=== PATIENT | male | born 1960 | race Caucasian/White ===

== ENCOUNTER 2017-03-07 05:51 | Inpatient (IN) | payer BC ==
--- NOTE | 2017-02-25 22:53 | HP ---
HISTORY AND PHYSICAL: DATE OF ADMISSION/SURGERY: 03/07/17 DATE OF OFFICE VISIT: 02/25/17 SURGEON: Ana Martini MD * (DICTATED BY LEOLA FARMER) PROCEDURE: Left total knee arthroplasty. CHIEF COMPLAINT: Left knee pain. HISTORY OF PRESENT ILLNESS: Mr. Crawford is a 56-year-old gentleman with continued complaints of left knee pain despite conservative management. He has elected to proceed with a left total knee arthroplasty, which is scheduled for 03/07/[address] Martini. PAST MEDICAL HISTORY: High cholesterol, diverticulitis, bicuspid aortic valve, and acid reflux. PAST SURGICAL HISTORY: Tonsillectomy and adenoidectomy and a rectal surgery when he was 2 days old. CURRENT MEDICATIONS: 1. Cetirizine 10 mg daily. 2. Loratadine 10 mg daily as needed. 3. Aspirin 81 mg daily. 4. Naproxen as needed. 5. Fluticasone nasal spray as needed. 6. Ibuprofen as needed. ALLERGIES: None. FAMILY HISTORY: Diabetes, hypertension, and cancer. SOCIAL HISTORY: This 56-year-old gentleman lives with his . He is retired. He does not smoke or use drugs, uses occasional alcohol. REVIEW OF SYSTEMS: A complete 14-point review of systems was reviewed with the patient, was all negative and noncontributory. PHYSICAL EXAMINATION GENERAL: He is well-developed, well-nourished, in no acute distress. VITAL SIGNS: He stands 6 feet 4 inches tall, weighs 268 pounds. His blood pressure is 139/90, his heart rate is 80. HEENT: Normocephalic, atraumatic. NECK: Supple. No palpable lymph nodes. PULMONARY: The lungs are clear to auscultation bilaterally. CARDIO: Regular rate and rhythm. Strong S1 and S2. ABDOMEN: Soft, nontender, nondistended. MUSCULOSKELETAL: Left lower extremity, the skin is intact. There are no open wounds or abrasions. There is a moderate joint effusion. Tenderness over the medial and lateral joint line. No varus or valgus instability. degrees of flexion, 2+ dorsalis pedis pulses. His lower extremity muscle group strengths are intact at 5/5 and he has intact sensation. NEUROLOGIC: Alert and oriented x3. Cranial nerves II through XII are intact. ASSESSMENT AND PLAN: Mr. Crawford is a 56-year-old gentleman with complaints of left knee pain secondary to end-stage osteoarthritis. He has failed conservative management and elected to proceed with a left total knee arthroplasty, which is scheduled for 03/07/[address] Martini discussed the risks and benefits of surgery at today's visit and all of his questions were answered. Coumadin, Colace, and Percocet were sent to his pharmacy for postoperative pain control and DVT prophylaxis. He will follow with Dr. Martini 2 weeks after the surgery. LEOLA FARMER [id number]/[facility] #: [id number] MTDTristan
[~2017-03-07 05:51] MED LIST: Buffered Lidocaine 0.9% SYRIN* 5 ML/SYR SYRINGE INTRADERM ONE
[2017-03-07] MEDS ORDERED: Famotidine IV* 10 MG/ML 2 ML (20 mg) IV ONE (06:00)
[2017-03-07] MEDS ORDERED: Acetaminophen TAB* 325 MG PO ONE (06:00)
[2017-03-07] MEDS ORDERED: Sodium Citrate/Citric Acid* 15 ML UDC PO ONE (06:00)
[2017-03-07] MEDS ORDERED: Famotidine IV* 10 MG/ML 2 ML (20 mg) ONE (06:01)
[2017-03-07] MEDS ORDERED: Acetaminophen TAB* 325 MG ONE (06:02)
[2017-03-07] MEDS ORDERED: ceFAZolin 2 GM PREMIX (*) 2 GM/50 ML BAG IVPB ONE (06:02)
[2017-03-07] MEDS ORDERED: Buffered Lidocaine 0.9% SYRIN* 5 ML/SYR SYRINGE ONE (06:02)
[2017-03-07] MEDS ORDERED: Sodium Citrate/Citric Acid* 15 ML UDC ONE (06:02)
[2017-03-07] MEDS ORDERED: Lidocaine 2% PF * 5 ML VIAL ONE (06:59)
[2017-03-07] MEDS ORDERED: Propofol* 500 MG/50 ML BTL ONE (06:59)
[2017-03-07] MEDS ORDERED: Midazolam* 1 MG/ML 2 ML VIAL (2 MG) ONE (07:02)
[2017-03-07] MEDS ORDERED: fentaNYL* 50 MCG/ML 2 ML VIAL (100 MCG VIAL) ONE ×3 (07:02→10:20)
[2017-03-07] MEDS ORDERED: Bupivacaine 0.5% SDV PF* 30 ML VIAL ONE ×2 (07:02→08:29)
[2017-03-07] MEDS ORDERED: Rocuronium* 10 MG/ML VIAL ONE (07:36)
[2017-03-07] MEDS ORDERED: Ondansetron INJ* 2 MG/ML VIAL IV PRN ×2 (07:51→10:17)
[2017-03-07] MEDS ORDERED: PROCHLORPERAZINE INJ 5 MG/ML 2 ML VIAL IV PRN (07:51)
[2017-03-07] MEDS ORDERED: Scopolamine 1.5 mg* PATCH TRANSDERM PRN (07:51)
[2017-03-07] MEDS ORDERED: Ibuprofen TAB* 600 MG PO PRN (07:51)
[2017-03-07] MEDS ORDERED: HYDROcodone/ACETAMIN 5-325 MG* 1 TAB PO PRN (07:51)
[2017-03-07] MEDS ORDERED: Phenylephrine IV* 40 MCG/ML 10 ML SYRINGE ONE ×2 (08:01→08:30)
[2017-03-07] MEDS ORDERED: EPHEDrine (Pressors)* 50 MG/ML VIAL ONE (08:30)
[2017-03-07] MEDS ORDERED: Ketorolac INJ* 30 MG/ML 1 ML VIAL ONE (08:33)
[2017-03-07] MEDS ORDERED: Ondansetron INJ* 2 MG/ML VIAL ONE (08:33)
[2017-03-07] MEDS ORDERED: HYDROmorphone INJ* 1 MG/ML CARPUJECT SYRINGE ONE ×2 (09:02→10:20)
[2017-03-07] MEDS ORDERED: Polyethylene Glycol 3350* 17 GM PACKET PO PRN (10:17)
[2017-03-07] MEDS ORDERED: Acetaminophen TAB* 325 MG PO PRN (10:17)
[2017-03-07] MEDS ORDERED: Morphine INJ* 2 MG/ML 1 ML CARPUJECT IV PRN (10:17)
[2017-03-07] MEDS ORDERED: diPHENhydraMINE IV* 50 MG/ML 1 ml VIAL (BENADRYL) IV PRN (10:17)
[2017-03-07] MEDS ORDERED: oxyCODONE/Acetamin 5/325 MG* TAB PO PRN (10:17)
[2017-03-07] MEDS ORDERED: Bisacodyl SUPP* 10 MG SUPP PR PRN (10:17)
[2017-03-07] MEDS ORDERED: Ondansetron TAB* 4 MG PO PRN (10:17)
[2017-03-07] MEDS ORDERED: oxyCODONE TAB* 5 MG TAB ONE (10:20)
[2017-03-07] MEDS: oxyCODONE TAB* 5 MG TAB PO PRN ×4 (10:21→23:24)
[2017-03-07] MEDS: HYDROmorphone INJ* 1 MG/ML CARPUJECT SYRINGE IV PRN ×3 (10:23→11:25)
[2017-03-07] MEDS ORDERED: Fluticasone NASAL SPRAY 50MCG* 16 gm SPRAY BTL BOTH NARES PRN (10:25)
[2017-03-07] MEDS: fentaNYL* 50 MCG/ML 2 ML VIAL (100 MCG VIAL) IV PRN ×2 (10:25→10:30)
--- NOTE | 2017-03-07 11:03 | RAD ---
HISTORY: Status post left knee arthroplasty COMPARISONS: January 14, 2017 VIEWS: 2, Frontal and lateral views of the left knee FINDINGS: BONE DENSITY: Normal. BONES: The patient is status post left knee arthroplasty. There is no hardware failure or osteolysis. JOINTS: The patient is status post left knee arthroplasty ALIGNMENT: There is no dislocation. SOFT TISSUES: Unremarkable. OTHER FINDINGS: None. IMPRESSION: STATUS POST LEFT KNEE ARTHROPLASTY
[2017-03-07] MEDS: Cyclobenzaprine TAB* 10 MG PO PRN ×2 (12:35→21:15)
[2017-03-07] MEDS ORDERED: Morphine INJ* 2 MG/ML 1 ML SYRINGE (TWO MG - NEW SYRINGE VERSION) IV PRN (13:10)
[2017-03-07] MEDS: oxyCODONE/Acetamin 5/325 MG* TAB PO PRN ×2 (15:15→21:10)
[2017-03-07] MEDS: D5W IVPB SCH (15:55)
[2017-03-07] MEDS: CEFAZOLIN IVPB SCH (15:55)
[2017-03-07] MEDS ORDERED: Warfarin TAB(*) 6 MG PO ONE (17:00)
[2017-03-07] MEDS: Docusate CAP* 100 MG PO SCH (19:16)
[2017-03-07] MEDS: Morphine TAB Extended Release (*) 15 MG TAB.ER PO SCH (21:36)
[2017-03-08] MEDS: D5W IVPB SCH ×2 (00:09→08:08)
[2017-03-08] MEDS: CEFAZOLIN IVPB SCH ×2 (00:09→08:08)
[2017-03-08] MEDS: oxyCODONE/Acetamin 5/325 MG* TAB PO PRN ×5 (01:43→18:56)
[2017-03-08] MEDS: HYDROmorphone INJ* 1 MG/ML CARPUJECT SYRINGE IV PRN ×3 (01:53→10:14)
[2017-03-08] MEDS: oxyCODONE TAB* 5 MG TAB PO PRN ×5 (03:24→23:11)
--- NOTE | 2017-03-08 03:45 | OP ---
DATE OF OPERATION: 03/07/17 - ROOM #350 DATE OF : 58 ATTENDING SURGEON: Ana Martini MD DRYWALL PROFESSIONAL: LEOLA Shields. Ms. Mcdonough did help throughout the procedure with preparation of the leg, wound retraction, manipulation of the knee, and wound closure. ANESTHESIOLOGIST: Dr. Hicks. ANESTHESIA: General. PRE-OP DIAGNOSIS: Severe end-stage degenerative osteoarthritis of the left knee joint. POST-OP DIAGNOSIS: Severe end-stage degenerative osteoarthritis of the left knee joint. OPERATIVE PROCEDURE: Left total knee arthroplasty. COMPLICATIONS: None. TOURNIQUET TIME: 46 minutes. ESTIMATED BLOOD LOSS: 200 cc. SPECIMENS: Bone and cartilage from the left knee joint sent to Pathology. HARDWARE USED: This is cemented [employer] total knee arthroplasty hardware with two packages of Simplex bone cement. For the femur, a size 6 left posterior stabilized Legion Oxinium femoral component. For the tibia, size 6 left tibial baseplate with the insert of 38 mm, 3-peg all poly patella, and for the insert, a posterior stabilized size 5/6 to 6 mm Rebecca II articular insert. BRIEF HISTORY/INDICATIONS: Ms. Crawford is a 56-year-old gentleman with years of increasingly severe left knee pain. He failed conservative treatment with the anti- inflammatories, pain medication, brace wear, physical therapy, and intraarticular injections. Radiographs showed [id number] arthritis. The patient elected to undergo left total knee arthroplasty due to increased pain and decreased quality of life. Informed consent was obtained from the patient. He understood the risks of surgery, included but were not limited to bleeding , infection, damage to nearby structures, continued pain, need for further surgery, intraoperative fracture, nerve palsy, hardware failure or loosening, knee stiffness, loss of motion, stroke, heart attack, blood clot, and . He wished to proceed. INTRAOPERATIVE FINDINGS: Intraoperatively, Mr. Crawford was noted to have severe end-stage degenerative osteoarthritis, which was tricompartmental. DESCRIPTION OF PROCEDURE: Mr. Crawford was identified in the preanesthesia unit. His left lower extremity was marked as the correct operative side. Informed consent was signed and placed in the chart. The patient was taken to the operating room and placed under spinal anesthesia. A Ruvalcaba catheter was placed. Thigh head tourniquet was placed on the left thigh. Left lower extremity was prepped and draped in the usual sterile fashion. Preop time-out was made to correctly identify the patient's side and site. Appropriate perioperative antibiotics were given within 1 hour of incision. Tourniquet was inflated and total tourniquet time for this procedure was 44 minutes. A straight midline incision of 12 cm was made and carried down to the extensor mechanism. New 10-blade was used to make a standard medial parapatellar arthrotomy. Electrocautery was used to elevate soft tissue off the superomedial tibia. The knee was flexed up. Anterior horn of the lateral meniscus and ACL were sharply released. A drill was used to enter the distal femur. Intramedullary distal femoral cutting guide was pinned on the distal femur. The distal femoral cut was made using an oscillating saw. Next, the external rotation guide was pinned on the distal femur and the distal femur was sized to a size 6. Size 6 multi-cutting jig was pinned on the distal femur. Oscillating saw was used to make the appropriate chamfer cuts. The PCL was completely released and the tibia was subluxed anteriorly. Extramedullary tibial cutting guide was pinned on the proximal tibia. Oscillating saw was used to make the proximal tibial cut perpendicular to the mechanical axis of the tibia. The knee was brought out into full extension. A spacer block had good fit with the knee in full extension. Medial and lateral ligamentous were well balanced. Flexion and extension gap was well balanced. The knee was flexed up. The lamina map drafter was placed both medially and laterally. Any remaining meniscus was carefully removed using electrocautery. Curved osteotome was used to remove any posterior osteophytes. Tibial tray and drop bertha once again confirmed satisfactory proximal tibial cut. Trial size 6 left femoral component was impacted on to the distal femur and had excellent fit. The box for the posterior stabilized implant was prepared using a reamer and box cut osteotome. Size 6 tibial tray trial with a 9-mm insert trial was placed and the knee was taken through a range of motion. The knee had full extension to 130 degrees of flexion with satisfactory patellofemoral tracking. The patella was everted. 9 mm of patellar bone and cartilage was carefully removed using an oscillating saw. The patella was sized to a size 38. The 3-peg holes were drilled through the size 38 guide. A trial 38 patella was placed and the knee was taken through a range of motion. There was good patellofemoral tracking. All trials were carefully removed. The tibia was subluxed anteriorly and sized to a size 6. Proximal tibia was prepared using a keel punch size 6. All bony cut surfaces were copiously irrigated with sterile saline and dried. Final implants were cemented into place starting with the tibia, followed by the femur , and last the patella. A 9-mm insert trial was placed while the knee was brought into full extension. The cement was allowed to fully cure and tourniquet was turned down at 46 minutes. The knee was copiously irrigated with sterile saline. Electrocautery was used to obtain meticulous hemostasis. Once the cement had fully cured, the insert trial was removed. Any excess cement was removed from around the hardware and capsule. Final insert chosen was a 9-mm posterior stabilized articular insert size 5/6. This was locked into position on the tibial tray. Stability of the insert was checked and rechecked and noted to be stable. The knee was copiously irrigated with sterile saline. The extensor mechanism was closed using interrupted #1 Vicryls. The rest of the incision was closed in a layered fashion using 0 and 2 -0 Vicryls. Skin was closed using running 3-0 nylon suture. Sterile Xeroform, 4x4s, and Webril were used to cover the incision. José Miguel wrap and cold pack were placed over this. The patient's anesthesia was reversed without difficulty. He was taken to the PACU in stable condition. Intended weight-bearing will be weightbearing as tolerated. Intended DVT prophylaxis will be Coumadin with a Lovenox bridge. [id number]/[facility] #: [id number] SRUTHI
[2017-03-08] MEDS: Cyclobenzaprine TAB* 10 MG PO PRN (05:16)
[2017-03-08 07:08] LABS: Hematocrit 38 % (42-52); Hemoglobin 12.6 g/dl (14.0-18.0); Mean Platelet Volume 9 um3 (7.4-10.4)
[2017-03-08 07:20] LABS: BUN/Creatinine Ratio 11.9 (8-20); Calcium 8.7 mg/dL (8.6-10.3); EGFR African American 89.7 (>60); EGFR Non-African American 69.7 (>60); Potassium 4.1 mmol/L (3.5-5.0)
[2017-03-08] MEDS: Magnesium Hydroxide LIQ* 30 ML UDC PO PRN ×2 (08:07→18:56)
[2017-03-08] MEDS: Morphine TAB Extended Release (*) 15 MG TAB.ER PO SCH ×2 (08:08→19:33)
[2017-03-08] MEDS: Cetirizine* 10 MG TAB PO SCH (08:08)
[2017-03-08] MEDS: Docusate CAP* 100 MG PO SCH ×2 (08:08→19:33)
[2017-03-08] MEDS: Enoxaparin(*) 40 MG/0.4 ML SYR SUBCUT SCH (12:06)
--- NOTE | 2017-03-08 12:56 | PN ---
Progress Note - Progress Note Date of Service: 03/08/17 SOAP: Subjective: 56 y/o male s/p L TKA by Dr Martini 03/07/2017. Patient reports increased pain, long acting added. at bedside, concerned as patient very sleepy, was unresponsive to questions earlier. VSS afebrile overnight Objective: General- Well appearing, resting comfortably in bed, NAD MSK- Dressing intact, no drainage noted, neg homans b/l, sensation grossly intact, PT 2+ b/l Vital Signs Temp 98.5 F 03/08/17 11:30 Pulse 80 03/08/17 11:30 Resp 18 03/08/17 12:06 BP 158/65 03/08/17 11:30 Pulse Ox 94 03/08/17 11:30 Intake & Output 03/07/17 03/08/17 03/08/17 18:59 06:59 18:59 Intake Total 2120 1470 1200 Output Total 325 1100 Balance 0205 396 5888 Intake: IV Fluids 1999 980 879 LR 1999 980 879 IVPB 50 51 ABX - CEFAZOLIN 50 51 Oral 120 440 270 Output: Ruvalcaba 125 1100 Estimated Blood Loss 200 Assessment: 56 y/o male s/p L TKA by Dr Martini 03/07/2017. Plan: - DVT pro- coumadin 8mg tonight, continue lovenox - Continue PT - Continue pain medications as written- may increase long acting if patient continues to have uncontrolled [ain without increased somnolence. - D/C to home over weekend Active Medications Generic Name Dose Route Start Last Admin Trade Name Freq PRN Reason Stop Dose Admin Acetaminophen 650 mg 03/07/17 10:17 Tylenol Tab* PO Q4H PRN PAIN OR TEMPERATURE Bisacodyl 10 mg 03/07/17 10:17 Dulcolax Supp* MS DAILY PRN constipation Cetirizine HCl 10 mg 03/08/17 09:00 03/08/17 08:08 Zyrtec* PO 10 mg QAM TONY Administration Cyclobenzaprine HCl 10 mg 03/07/17 10:25 03/08/17 05:16 Flexeril Tab* PO 10 mg TID PRN Administration SPASMS Diphenhydramine HCl 12.5 mg 03/07/17 10:17 Benadryl Iv* IV Q6H PRN PRURITIS Docusate Sodium 100 mg 03/07/17 21:00 03/08/17 08:08 Colace Cap* PO 100 mg BID TONY Administration Enoxaparin Sodium 40 mg 03/08/17 12:00 03/08/17 12:06 Lovenox(*) SUBCUT 40 mg Q24H TONY Administration Fluticasone Propionate 2 spray 03/07/17 10:25 Flonase Nasal [place] 50mcg* BOTH NARES QAM PRN Allergy Symptoms Hydromorphone HCl 1 mg 03/07/17 21:32 03/08/17 10:14 Dilaudid Injic* IV 1 mg Q2H PRN Administration PAIN Lactated Ringer's 1,000 mls @ 100 mls/hr 03/07/17 11:00 03/08/17 08:12 Lactated Ringers 1000 Ml Bag* IV 100 mls/hr PER RATE TONY Administration Lactulose 30 ml 03/07/17 10:17 Lactulose* PO Q6H PRN constipation Magnesium Hydroxide 30 ml 03/07/17 10:17 03/08/17 08:07 Milk Of Magnesia Liq* PO 30 ml Q6H PRN Administration constipation Morphine Sulfate 15 mg 03/07/17 22:00 03/08/17 08:08 Ms Contin(*) PO 15 mg BID TONY Administration Ondansetron HCl 4 mg 03/07/17 10:17 Zofran Inj* IV Q6H PRN nausea Ondansetron HCl 4 mg 03/07/17 10:17 Zofran Tab* PO Q6H PRN NAUSEA Oxycodone HCl 10 mg 03/07/17 10:17 03/08/17 12:06 Roxycodone Tab* PO 10 mg Q4H PRN Administration SEVERE PAIN Oxycodone/Acetaminophen 1 tab 03/07/17 10:17 Percocet 5/325 Tab* PO Q4H PRN PAIN Oxycodone/Acetaminophen 2 tab 03/07/17 10:17 03/08/17 10:13 Percocet 5/325 Tab* PO 2 tab Q4H PRN Administration PAIN Pharmacy Profile Note 1 note 03/10/17 07:52 Scopolamine Patch Remove* PATCH OFF 03/10/17 07:53 Q72H ONE Polyethylene Glycol/Electrolytes 17 gm 03/07/17 10:17 Miralax* PO DAILY PRN Constipation Scopolamine 1 patch 03/07/17 07:51 Transderm-Scop 1.5 Mg Patch* TRANSDERM Q72H PRN Nausea/Vomiting Warfarin Sodium 8 mg 03/08/17 17:00 Coumadin Tab(*) PO 03/08/17 17:01 ONCE@1700 ONE Protocol
[2017-03-08] MEDS ORDERED: Warfarin TAB(*) 4 MG PO ONE (17:00)
[2017-03-09] MEDS: oxyCODONE/Acetamin 5/325 MG* TAB PO PRN ×2 (01:22→05:40)
[2017-03-09] MEDS: oxyCODONE TAB* 5 MG TAB PO PRN ×2 (03:45→11:58)
[2017-03-09 05:49] LABS: Hematocrit 38 % (42-52); Hemoglobin 12.9 g/dl (14.0-18.0)
[2017-03-09] MEDS: Morphine TAB Extended Release (*) 15 MG TAB.ER PO SCH (08:42)
[2017-03-09] MEDS: Magnesium Hydroxide LIQ* 30 ML UDC PO PRN (08:42)
[2017-03-09] MEDS: Docusate CAP* 100 MG PO SCH (08:42)
[2017-03-09] MEDS: Cetirizine* 10 MG TAB PO SCH (08:42)
[2017-03-09 10:42] VITALS: BP 120/80
--- NOTE | 2017-03-09 11:10 | PN ---
Progress Note - Progress Note Date of Service: 03/09/17 SOAP: Subjective: 56 y/o male s/p L TKA by Dr Martini 03/07/2017. Patient reports that long acting medication has been working very well. Pt states he is ready to go home today. VSS afebrile overnight Objective: General- Well appearing, resting comfortably in chair, NAD MSK- Dressing changed, wound is c/d/i no drainage noted, neg homans b/l, sensation grossly intact, PT 2+ b/l Vital Signs Temp 98.8 F 03/09/17 08:10 Pulse 85 03/09/17 08:10 Resp 18 03/09/17 10:54 BP 120/80 03/09/17 08:10 Pulse Ox 94 03/09/17 08:10 Intake & Output 03/08/17 03/09/17 03/09/17 18:59 06:59 18:59 Intake Total 2392 1370 320 Output Total 650 800 Balance 1742 570 320 Intake: IV Fluids 1516 LR 1516 IVPB 106 ABX - CEFAZOLIN 106 Oral 770 1370 320 Output: Urine 650 800 Other: Estimated Void Medium Medium Assessment: 56 y/o male s/p L TKA by Dr Martini 03/07/2017. Plan: - DVT pro- coumadin 8mg tonight - Continue PT - Long acting morphine 15mg bid prescribed to home medications - D/C to home today
[2017-03-09] MEDS: Enoxaparin(*) 40 MG/0.4 ML SYR SUBCUT SCH (11:49)
[2017-03-10] MEDS ORDERED: Scopolamine PATCH Remove* 1 NOTE MISC PATCH OFF ONE (07:52)
--- NOTE | 2017-03-11 05:15 | DS ---
DISCHARGE SUMMARY: DATE OF ADMISSION: 03/07/17 DATE OF DISCHARGE: 03/09/17 PROVIDER: Dr. Ana Martini * (DICTATED BY LEOLA PERERA) ADMITTING DIAGNOSIS: Left total knee arthroplasty. CONSULTATIONS: Physical Therapy and Occupational Therapy. HISTORY OF PRESENT ILLNESS: Mr. Crawford is a 56-year-old gentleman with acute complaints of left knee pain despite conservative management. He has elected to proceed with the left total knee arthroplasty which was performed on with Dr. Ana Martini. HOSPITAL COURSE: The patient was admitted to [facility] on 03/07/17 and underwent a left total knee arthroplasty with no complications. The patient recovered briefly in the postanesthesia care unit and then was transferred to the short stay surgical unit in stable condition. On postop day #1, the patient's H and H was 12.6 and 38, INR was 0.98 after 6 mg of Coumadin the night before. Dressing was clean, dry and intact. Left lower extremity was neurovascularly intact. He could demonstrate dorsiflexion and plantar flexion with good strength. The patient was able to get out of bed with physical therapy. Pain was controlled with morphine extended release 15 mg p.o. On postop day #2, the urinary catheter was discontinued and the patient was able to void without difficulty. Incision was found to be benign with minimal drainage, no erythema or warmth. The patient's H and H was 12.9 and 38, INR was 1.1 after 6 mg of Coumadin the night before. The pain was controlled with morphine extended release 15 mg. The patient's pain was well controlled and found to be stable before discharge throughout the hospital course. Vital signs remained stable and the patient was afebrile. DISCHARGE CONDITION: Good. DISCHARGE MEDICATIONS: 1. Morphine extended release 15 mg. 2. Warfarin 2 mg. 3. Colace. HOME MEDICATIONS: 1. Cetirizine 10 mg daily. 2. Loratadine 10 mg daily. 3. Aspirin 81 mg daily. 4. Naproxen as needed. 5. Fluticasone nasal spray as needed. 6. Ibuprofen as needed. DISCHARGE INSTRUCTIONS: 1. Weight bearing as tolerated. 2. Wound care: Okay to shower. No bathing, swimming or submerging the wound. Use gentle soap, pat dry. Cover with gauze, José Miguel wrap or tape. Call orthopedic office for increased drainage, redness, increased pain or fever. Go to ER with shortness of breath or chest pain. 3. Diet: Regular diet. Increase fluids and fiber to prevent constipation. Continue to use stool softeners or call office if no bowel motion within 48 hours. 4. Continue physical therapy and occupational therapy exercises as shown. 5. Visiting home nurse to do wound check. 6. Visiting home nurse to draw blood work for INR on Saturday and . 7. Coumadin dosing, 8 mg of Coumadin tonight. 8. Pain control, will continue to take morphine extended release 15 mg twice a day. 9. Antibiotics required prior to any dental work. 10. Follow up with Dr. Ana Martini in 10 to 14 days, call for an appointment. LEOLA PERERA [id number]/[facility] #: [id number] SRUTHI
== END 2017-03-09 12:15 | disposition home health service (06) | DRG 302 ==
LOC: AA 05:51 → SSU 12:10
PROVIDERS: ADMIT Orthopaedic Surgery Adult Reconstructive Orthopaedic Surgery; ATTEND Orthopaedic Surgery Adult Reconstructive Orthopaedic Surgery
PROC: 0SRD0J9 Replacement of Left Knee Joint with Synthetic Substitute, Cemented, Open Approach (ICD-10-PCS; principal; 2017-03-07 07:30)
DX: M17.12 Unilateral primary osteoarthritis, left knee (principal); K76.0 Fatty (change of) liver, not elsewhere classified; E78.5 Hyperlipidemia, unspecified; K21.9 Gastro-esophageal reflux disease without esophagitis; K57.90 Diverticulosis of intestine, part unspecified, without perforation or abscess without bleeding; G56.00 Carpal tunnel syndrome, unspecified upper limb; M25.762 Osteophyte, left knee; Z79.82 Long term (current) use of aspirin; Z95.2 Presence of prosthetic heart valve; Z83.3 Family history of diabetes mellitus; Z82.49 Family history of ischemic heart disease and other diseases of the circulatory system; Z79.01 Long term (current) use of anticoagulants
CPT/HCPCS: 36415; 80048; 85014; 85018; 85049; 85610; 94760; A9270-GY; C1776; J0690; J1170; J1650; J1885; J2250; J2270; J2405; J2704; J3010

== ENCOUNTER 2021-03-16 11:00 | Observation (INO) ==
[~2021-03-16 11:00] MED LIST changes: -Buffered Lidocaine 0.9% SYRIN* 5 ML/SYR SYRINGE INTRADERM ONE; +Buffered Lidocaine 1% SYRIN 1 ml INTRADERM ONE; +Lactated Ringers 1000 ml BAG 1,000 ML IV SCH
[2021-03-16] MEDS ORDERED: ceFAZolin 2 GM PREMIX 2 GM/50 ML BAG ONE (12:36)
[2021-03-16] MEDS ORDERED: ceFAZolin 1 GM ADVAN 1 GM ADDV.VIAL IVPB ONE (12:36)
[2021-03-16] MEDS ORDERED: fentaNYL 100 mcg/2 ml 50 MCG/ML VIAL ONE ×3 (14:40→18:46)
[2021-03-16] MEDS ORDERED: Midazolam 2 mg/2 ml VIAL 1 mg/ml 2 ml VIAL (2 mg) ONE (14:40)
[2021-03-16] MEDS ORDERED: Rocuronium 50 mg VIAL 10 mg/ml 5 ml VIAL (50 mg) ONE ×3 (14:41→16:41)
[2021-03-16] MEDS ORDERED: Dexamethasone IV 4 MG/ML VIAL 1 ml VIAL ONE (15:31)
[2021-03-16] MEDS ORDERED: Dexmedetomidine 200 mcg/2 ml 2 ml VIAL (200 mcg) ONE (16:16)
[2021-03-16] MEDS ORDERED: Naloxone 0.4 mg VIAL 0.4 mg/ml 1 ml VIAL IV PRN (16:26)
[2021-03-16] MEDS ORDERED: Ondansetron 4 mg VIAL 2 MG/ML 2 ml VIAL IV PRN ×2 (16:26→18:22)
[2021-03-16] MEDS ORDERED: Glycopyrrolate IV 0.2 MG/ML 1 ML VIAL ONE (16:38)
[2021-03-16] MEDS ORDERED: Acetaminophen IV 1 GM/100ML 100 ML IV ONE (17:43)
[2021-03-16] MEDS ORDERED: HYDROmorphone 0.5 MG/0.5 ML SYRINGE ONE ×2 (17:47→18:20)
[2021-03-16] MEDS ORDERED: diPHENhydraMINE 25 mg TAB PO PRN (18:22)
[2021-03-16] MEDS ORDERED: Ondansetron ODT 4 mg TAB 4 MG TAB PO PRN (18:22)
[2021-03-16] MEDS ORDERED: Lactulose 30 ml UDC PO PRN (18:22)
[2021-03-16] MEDS ORDERED: Morphine 2 MG/ML SYRINGE IV PRN (18:22)
[2021-03-16] MEDS ORDERED: Magnesium Hydroxide LIQ 30 ML UDC PO PRN (18:22)
[2021-03-16] MEDS ORDERED: diPHENhydraMINE IV 50 MG/ML 1 ml VIAL (BENADRYL) IV PRN (18:22)
[2021-03-16] MEDS ORDERED: HYDROmorphone 1 MG/1 ML SYRINGE ONE (18:31)
[2021-03-16] MEDS: HYDROmorphone 1 MG/1 ML SYRINGE IV PRN ×2 (18:35→18:45)
[2021-03-16] MEDS: fentaNYL 100 mcg/2 ml 50 MCG/ML VIAL IV PRN ×2 (18:55→19:00)
[2021-03-16] MEDS: Lactated Ringers 1000 ml BAG 1,000 ML IV SCH (21:26)
[2021-03-16] MEDS: Magnesium Hydroxide LIQ 30 ML UDC PO SCH (23:05)
[2021-03-17 05:26] LABS: Hematocrit 37 % (42-52); Hemoglobin 12.6 g/dL (14.0-18.0); Mean Platelet Volume 8.6 fL (7.4-10.4); Platelet Count 188 10^3/uL (150-450)
[2021-03-17 05:42] LABS: Calcium 8.7 mg/dL (8.6-10.3); Potassium 4.6 mmol/L (3.5-5.0); eGFR CKD-EPI 60.8 (>60)
[2021-03-17] MEDS: Lactated Ringers 1000 ml BAG 1,000 ML IV SCH (07:40)
[2021-03-17] MEDS: ceFAZolin 1 GM ADVAN 1 GM in NS 0.9% 50 ML 50 ML IVPB SCH ×3 (07:40→15:04)
[2021-03-17] MEDS: Magnesium Hydroxide LIQ 30 ML UDC PO SCH (08:17)
[2021-03-17] MEDS ORDERED: Vitamin THERAPEUTIC TAB PO SCH (09:00)
[2021-03-17 15:55] VITALS: BP 115/73
[2021-03-17] MEDS ORDERED: amLODIPine/Benazepril 10/20(NF) CAP PO SCH (18:00)
== END 2021-03-17 16:15 | disposition home or self-care (01) ==
LOC: INTOOBSV 12:41 → AA 12:41 → SSU 20:49
PROVIDERS: ADMIT Orthopaedic Surgery Adult Reconstructive Orthopaedic Surgery; ATTEND Orthopaedic Surgery Adult Reconstructive Orthopaedic Surgery